=== PATIENT | male | born 1985 | race Caucasian/White ===

== ENCOUNTER 2016-11-30 14:26 | Emergency (ER) | payer MEDICAID, OTHER ==
[~2016-11-30] VITALS: Ht 180.3 cm; Wt 61.2 kg
--- NOTE | 2016-11-30 14:30 | NUR ---
PT BIBRA FROM THE STREETS TO ER BED 14. PER REPORT, EMS WAS TOLD BY PD THAT PT IS C/O HAVING A SEIZURE. PT STATES BEEN OFF HIS MEDICATION FOR A LONG TIME BECAUSE OF ABSENCE OF SEIZURE. PT HAVE GENERALIZED BRUISING NOTED. GOWNED AND PLACED ON MONITOR. STABLE VITALS. AWAITING MD CARDENAS.
--- NOTE | 2016-11-30 14:40 | NUR ---
DR MCMAHON AT BEDSIDE FOR EVAL.
--- NOTE | 2016-11-30 14:56 | NUR ---
HEALTH CARE SANITARY TECHNICIAN AT BEDSIDE FOR BLOOD DRAW.
[2016-11-30] MEDS ORDERED: IV NS 0.9% 1,000 ML BAG IV ONE (15:00)
[2016-11-30 15:10] LABS: CALCIUM, SERUM 9.2 mg/dL (8.5-10.1); CARBON DIOXIDE 26 mmol/L (21-32); CHLORIDE 91 mmol/L (98-107); CREATININE 1.1 mg/dL (0.6-1.3); GLUCOSE 120 mg/dL (74-106); POTASSIUM 3.1 mmol/L (3.5-5.1); SODIUM SERUM 131 mmol/L (136-145); UREA NITROGEN, BLOOD 6 mg/dL (7-18)
[2016-11-30 15:22] LABS: BASOPHILS % (AUTO) 0.1 % (0.0-2.0); EOSINOPHILS # (AUTO) 0.1 /CMM (0.0-0.7); EOSINOPHILS % (AUTO) 1.3 % (0.0-6.0); HEMATOCRIT 31 % (39-51); HEMOGLOBIN 10.5 g/dL (13.5-17.5); LYMPHOCYTES # (AUTO) 0.3 /CMM (0.8-4.8); LYMPHOCYTES % (AUTO) 7.2 % (20.0-44.0); MEAN CORPUSCULAR HEMOGLOBIN 30 PG (26.0-33.0); MEAN CORPUSCULAR HGB CONC 34 g/dl (31.0-36.0); MEAN CORPUSCULAR VOLUME 89 fL (80-96); MONOCYTES # (AUTO) 0.7 /CMM (0.1-1.30); MONOCYTES % (AUTO) 13.8 % (2.0-12.0); NEUTROPHILS # (AUTO) 3.7 /CMM (1.8-8.9); NEUTROPHILS % (AUTO) 77.6 % (43.0-81.0); RDW COEFFICIENT OF VARIATION 19.5 (11.5-15.0); RED BLOOD CELL COUNT(AUTO) 3.47 MIL/uL (4.5-6.0); WHITE BLOOD COUNT (AUTO) 4.8 K/uL (4.3-11.0)
[2016-11-30 15:24] LABS: ALANINE AMINOTRANSFERASE 138 U/L (12-78); ALBUMIN 4.1 g/dL (3.4-5.0); ALCOHOL, BLOOD < 3 mg/dL (0-0); ALKALINE PHOSPHATASE 205 U/L (46-116); ASPARTATE AMINOTRANSFERASE 432 U/L (15-37); BILIRUBIN,DIRECT 3.2 mg/dL (0.0-0.2); BILIRUBIN,TOTAL 4.5 mg/dL (0.2-1.0); TOTAL PROTEIN, SERUM 8.1 g/dL (6.4-8.2)
[2016-11-30 15:25] LABS: ACETAMINOPHEN 0 ug/ml (10-30); SALICYLATE < 0.2 mg/dL (2.8-20.0)
[2016-11-30 15:36] LABS: PLATELET COUNT (AUTO) 19 /CMM (150-450)
[2016-11-30 15:40] LABS: LYMPHOCYTES % (MANUAL) 12 % (16-48); MONOCYTES % (MANUAL) 8 % (0-11.0); NEUTROPHILS % (MANUAL) 80 (42-76)
--- NOTE | 2016-11-30 16:56 | NUR ---
PT IS AWAKE. AMBULATORY W/ STEADY GAIT. STATES FEELING MUCH BETTER AND WANTS TO GO HOME. IVHL D/C'D. STABLE CONDITION.
[2016-11-30 16:59] VITALS: BP 124/77
== END 2016-11-30 16:59 | disposition home or self-care (01) ==
LOC: ER 14:27
DX: G40.909 Epilepsy, unspecified, not intractable, without status epilepticus (principal); F32.9 Major depressive disorder, single episode, unspecified; R51 Headache; F10.10 Alcohol abuse, uncomplicated
CPT/HCPCS: 36415; 70450; 80048; 80076; 80329; 85025; 93005; 99285; A4606; G0480 ×2; J7030; Z7610

== ENCOUNTER 2016-12-13 21:16 | Emergency (ER) | payer MEDICAID ==
[~2016-12-13] VITALS: Ht 177.8 cm; Wt 59.0 kg
--- NOTE | 2016-12-13 21:25 | NUR ---
PT BIBA#99, PT STATES HE TOOK 5MG OF XANAX THEN WENT TO THE BAR TO DRINK PT WAS FOUND PASSED OUT IN THE BAR. NAD NOTED, VSS, RESP EVEN AND UNLABORED, PUT ON MONITOR. WAITING FOR MD CARDENAS..
--- NOTE | 2016-12-13 22:00 | NUR ---
blood glucose level 103. aware.
--- NOTE | 2016-12-13 23:26 | NUR ---
Patient is resting comfortably in bed with eyes closed. Easily aroused. VSS
--- NOTE | 2016-12-14 06:02 | NUR ---
PT OK TO DISCHARGE PER DR GODFREY, Patient discharged to home in stable condition. Written and verbal after care instructions given. Patient verbalizes understanding of instruction.Patient is awake and alert to self, day, and place. PT ambulatory with a steady gait
[2016-12-14 06:56] VITALS: BP 115/71
== END 2016-12-13 22:00 | disposition home or self-care (01) ==
LOC: ER 21:16
DX: F19.129 Other psychoactive substance abuse with intoxication, unspecified (principal); F32.9 Major depressive disorder, single episode, unspecified; F41.9 Anxiety disorder, unspecified
CPT/HCPCS: 82962; 99283; A4606; Z7610

== ENCOUNTER 2016-12-15 21:51 | Emergency (ER) | payer MEDICAID ==
[~2016-12-15] VITALS: Ht 180.3 cm; Wt 66.7 kg
--- NOTE | 2016-12-15 21:52 | NUR ---
TO BED 4 BIB PARAMEDICS C/O ALTERED, ETOH, POSSIBLE OVERDOSE. PT SOMNOLENT, NO ACUTE DISTRESS NOTED, RESP EVEN AND UNLABORE.D PALCE PT ON CARDIAC MONITORING, CONTINUOUS POX. PENDING ER MD CARDENAS.
--- NOTE | 2016-12-15 22:45 | NUR ---
pt asleep, no acute distress noted, resp even and unlabored. call light within reach.
[2016-12-15] MEDS ORDERED: ONDANSETRON HCL/PF 4 MG/2 ML VIAL ONE (23:27)
[2016-12-15] MEDS ORDERED: Magnesium 1GM/D5W 100ML PREMIX 200 ML IV ONE (23:29)
[2016-12-15] MEDS ORDERED: IV NS 0.9% 1,000 ML BAG IV ONE (23:30)
[2016-12-15] MEDS ORDERED: Magnesium 1 GM/2 ML VIAL IV ONE (23:30)
[2016-12-15] MEDS ORDERED: METOCLOPRAMIDE HCL 10 MG/2 ML VIAL ONE (23:59)
[2016-12-16] MEDS ORDERED: METOCLOPRAMIDE HCL 10 MG/2 ML VIAL IV ONE
[2016-12-16] MEDS ORDERED: ONDANSETRON HCL/PF 4 MG/2 ML VIAL IV ONE
--- NOTE | 2016-12-16 00:05 | NUR ---
PT ASLEEP, EASILY AROUSABLE, NO ACUTE DISTRESS NOTED, RESP EVEN AND UNLABORED. CALL LIGHT WITHIN REACH.
[2016-12-16 00:22] LABS: HEMATOCRIT 33 % (39-51); HEMOGLOBIN 11.3 g/dL (13.5-17.5); MEAN CORPUSCULAR HEMOGLOBIN 31 PG (26.0-33.0); MEAN CORPUSCULAR HGB CONC 35 g/dl (31.0-36.0); MEAN CORPUSCULAR VOLUME 90 fL (80-96); PLATELET COUNT (AUTO) 84 /CMM (150-450); RDW COEFFICIENT OF VARIATION 21.7 (11.5-15.0); RED BLOOD CELL COUNT(AUTO) 3.65 MIL/uL (4.5-6.0)
[2016-12-16 00:33] LABS: CALCIUM, SERUM 7.8 mg/dL (8.5-10.1); CREATININE 0.6 mg/dL (0.6-1.3); POTASSIUM 3.3 mmol/L (3.5-5.1)
[2016-12-16 00:36] LABS: INR 1.12 (0.87-1.13); PROTHROMBIN TIME 11.7 SECS (9.5-12.7)
[2016-12-16 01:03] LABS: LYMPHOCYTES % (MANUAL) 27 % (16-48); MONOCYTES % (MANUAL) 5 % (0-11.0); NEUTROPHILS % (MANUAL) 68 (42-76)
--- NOTE | 2016-12-16 04:42 | NUR ---
PT REMAINS ASLEEP, EASILY AROUSABLE, NO ACUTE DISTRESS NOTED, RESP EVEN AND UNLABORED. NO PAIN OR DISCOMFORT NOTED. CALL LIGHT WITHIN REACH.
--- NOTE | 2016-12-16 07:23 | NUR ---
REPORT GIVEN TO SANDRINE CHENEY FOR REJI.
--- NOTE | 2016-12-16 09:00 | NUR ---
IV removed. Catheter intact and site benign. Pressure and 4x4 applied to site. No bleeding noted.
--- NOTE | 2016-12-16 09:15 | NUR ---
Pt ambulatory with a steady gait. Patient discharged to home in stable condition. Written and verbal after care instructions given. Patient verbalizes understanding of instruction.
[2016-12-16 09:32] VITALS: BP 116/84
== END 2016-12-16 09:32 | disposition home or self-care (01) ==
LOC: ER 21:52
DX: F10.129 Alcohol abuse with intoxication, unspecified (principal); F41.9 Anxiety disorder, unspecified; F32.9 Major depressive disorder, single episode, unspecified; G40.909 Epilepsy, unspecified, not intractable, without status epilepticus; R41.82 Altered mental status, unspecified; R79.1 Abnormal coagulation profile; R73.09 Other abnormal glucose
CPT/HCPCS: 36415; 70450; 71010; 80048; 82962; 85025; 85730; 93005; 96361; 96374; 96375; 99285; A4606; J2405; J2765; J3475; J7030; Z7610

== ENCOUNTER 2016-12-17 08:50 | Emergency (ER) | payer MEDICAID ==
[~2016-12-17] VITALS: Ht 167.6 cm; Wt 74.8 kg
[2016-12-17] MEDS ORDERED: IV NS 0.9% 1,000 ML BAG IV ONE (09:00)
--- NOTE | 2016-12-17 09:00 | NUR ---
BB RA FROM AN [employer] FOR ETOH. PT STS HE HAD ALCOHOL LAST NIGHT. AAO4. NO APPARENT DISTRESS. VSS
[2016-12-17 09:27] LABS: HEMATOCRIT 35 % (39-51); HEMOGLOBIN 11.9 g/dL (13.5-17.5); MEAN CORPUSCULAR HEMOGLOBIN 31 PG (26.0-33.0); MEAN CORPUSCULAR HGB CONC 34 g/dl (31.0-36.0); MEAN CORPUSCULAR VOLUME 91 fL (80-96); RDW COEFFICIENT OF VARIATION 20.8 (11.5-15.0); RED BLOOD CELL COUNT(AUTO) 3.88 MIL/uL (4.5-6.0); WHITE BLOOD COUNT (AUTO) 9.7 K/uL (4.3-11.0)
[2016-12-17 09:29] LABS: CALCIUM, SERUM 8.5 mg/dL (8.5-10.1); CARBON DIOXIDE 27 mmol/L (21-32); CHLORIDE 100 mmol/L (98-107); CREATININE 0.7 mg/dL (0.6-1.3); GLUCOSE 96 mg/dL (74-106); POTASSIUM 3.5 mmol/L (3.5-5.1); SODIUM SERUM 138 mmol/L (136-145); UREA NITROGEN, BLOOD 4 mg/dL (7-18)
[2016-12-17 09:36] LABS: ALANINE AMINOTRANSFERASE 90 U/L (12-78); ALBUMIN 3.9 g/dL (3.4-5.0); ALCOHOL, BLOOD 566 mg/dL (0-0); ALKALINE PHOSPHATASE 298 U/L (46-116); ASPARTATE AMINOTRANSFERASE 391 U/L (15-37); BILIRUBIN,DIRECT 3.8 mg/dL (0.0-0.2); BILIRUBIN,TOTAL 4.7 mg/dL (0.2-1.0); TOTAL PROTEIN, SERUM 9.3 g/dL (6.4-8.2)
[2016-12-17 09:37] LABS: ACETAMINOPHEN 0 ug/ml (10-30); PLATELET COUNT (AUTO) 58 /CMM (150-450); SALICYLATE < 2.8 mg/dL (2.8-20.0)
[2016-12-17 09:52] LABS: APPEARANCE,URINE CLEAR (CLEAR); BILIRUBIN,URINE NEGATIVE (NEGATIVE); BLOOD, URINE TRACE Ery/uL (NEGATIVE); COLOR,URINE YELLOW (YELLOW); KETONES,URINE NEGATIVE (NEGATIVE); LEUKOCYTE ESTERASE ,URINE NEGATIVE (NEGATIVE); NITRITE, URINE NEGATIVE (NEGATIVE); PROTEIN,URINE NEGATIVE (NEGATIVE); UGLUCOSE NEGATIVE (NEGATIVE); UROBILINOGEN,URINE 0.2 EU/dL (0.2)
[2016-12-17 10:08] LABS: BACTERIA,URINE Few /HPF (None Seen); SQUAMOUS EPITHELIAL CELL,UR Rare /HPF (None Seen); WBC,URINE 0-2 /HPF (0-3)
[2016-12-17 10:18] LABS: LYMPHOCYTES % (MANUAL) 15 % (16-48); NEUTROPHILS % (MANUAL) 72 (42-76)
[2016-12-17 10:19] LABS: MONOCYTES % (MANUAL) 13 % (0-11.0)
--- NOTE | 2016-12-17 13:58 | NUR ---
PT IS AWAKE, AMBULATORY W/ STEADY GAIT. DR MARTINEZ AT BED FOR RE EVAL. PT WANTS TO GO HOME. MEDICALLY CLEARED FOR DISCHARGE.
[2016-12-17 14:05] VITALS: BP 118/64
== END 2016-12-17 14:06 | disposition home or self-care (01) ==
LOC: ER 08:53
DX: R41.82 Altered mental status, unspecified (principal); F10.129 Alcohol abuse with intoxication, unspecified; F32.9 Major depressive disorder, single episode, unspecified; F41.9 Anxiety disorder, unspecified; G40.909 Epilepsy, unspecified, not intractable, without status epilepticus; F17.200 Nicotine dependence, unspecified, uncomplicated
CPT/HCPCS: 36415; 80048; 80076; 80305; 80329; 81001; 85025; 96360; 99284; A4606; G0480 ×2; J7030; Z7610; 81000-TC